=== PATIENT | female | born 1970 | race Caucasian/White ===

== ENCOUNTER 2022-12-24 10:00 | Emergency (ER) | payer OTHER ==
[~2022-12-24] VITALS: Ht 160 cm; Wt 73.0 kg
[2022-12-24] MEDS ORDERED: IBUPROFEN 400MG TABLET PO ONE (13:00)
[2022-12-24] MEDS ORDERED: ACETAMINOPHEN 325MG TABLET PO ONE (14:15)
[2022-12-24 15:55] VITALS: BP 100/60
== END 2022-12-24 15:57 | disposition home or self-care (01) ==
LOC: ER 11:02
DX: S09.90XA Unspecified injury of head, initial encounter (principal); W18.39XA Other fall on same level, initial encounter; Y93.89 Activity, other specified; Y92.89 Other specified places as the place of occurrence of the external cause; Y99.8 Other external cause status
CPT/HCPCS: 81025; 99284